=== PATIENT | male | born 1995 | race Two or more races ===

== ENCOUNTER 2017-02-11 21:51 | Emergency (ER) | payer OTHER ==
[2017-02-11 22:00] VITALS: BP 133/84
[2017-02-11 22:55] LABS: BILIRUBIN,URINE NEG (NEG); CLARITY,URINE CLEAR; COLOR,URINE YELLOW; GLUCOSE,URINE NEG (NEG)
[2017-02-11 22:56] LABS: BACTERIA,URINE 0 /HPF (0-FEW); NITRITE,URINE NEG (NEG); RBC,URINE OCC /HPF (0-2); SQUAMOUS EPITHELIAL CELL,UR OCC /LPF; UROBILINOGEN,URINE 0.2 mg/dL (0.2 mg/dL); WBC,URINE OCC /HPF (0-4)
--- NOTE | 2017-02-11 23:27 | PHYS DOC ---
General Chief Complaint: URINARY FREQUENCY Stated Complaint: FREQUENT URINATION Time Seen by MD: 22:00 Source: patient Exam Limitations: no limitations Problems: History of Present Illness Initial Comments Patient is a 21-year-old male who comes to the emergency department complaining of urinary frequency. Patient states that since this morning he's felt like he had to urinate but cannot produce much urine. He denies any dysuria hematuria odor, no lower abdominal pain and flank pain nausea or vomiting. No pain with bowel movements or ejaculation no penile discharge no testicular pain or history of STI. No fever chills sweats or myalgias patient is normally healthy and denies any chronic medical conditions or daily medications. Patient denies any trauma or high risk sexual behavior. ED vitals are normal. Timing/Duration: 24 hours Severity: moderate Modifying Factors: improves with other Associated Symptoms: other Allergies: Coded Allergies: No Known Drug Allergies (Unverified , 02/11/17) Past Medical History Medical History: no pertinent history Surgical History: no surgical history Social History Smoker: cigarettes Alcohol: none Drugs: none Review of Systems Constitutional: denies chills, denies diaphoresis, denies fever Respiratory: denies cough, denies shortness of breath Cardiovascular: denies chest pain, denies palpitations Gastrointestinal: see HPI Genitourinary: see HPI Musculoskeletal: denies back pain, denies joint swelling Psychiatric/Neurological: denies headache, denies numbness, denies paresthesia Physical Exam General Appearance: WD/WN, no apparent distress Ear, Nose, Throat: hearing grossly normal, normal ENT inspection Neck: full range of motion, supple Respiratory: normal breath sounds, no respiratory distress Cardiovascular: normal peripheral pulses, regular rate, rhythm Gastrointestinal: non tender, soft Back: no CVA tenderness, no vertebral tenderness Extremities: non-tender, normal inspection Neurologic/Psychiatric: alert, oriented x 3 Skin: normal color, warm/dry Orders, Labs, Meds Urinalysis is unremarkable Bladder scan reveals a 6 mL post void residual I discussed findings, patient has sensation of urinary frequency however there is no evidence of infection and scant post void residual. No further need for ED workup the patient was reassured. Patient will follow-up at [place] tomorrow for recheck and urology referral. He was advised to stop smoking. Departure Time of Disposition: 23:25 Disposition: HOME, SELF-CARE Diagnosis: urinary frequency Condition: STABLE Patient Instructions: Urinary Frequency Additional Instructions: As discussed no infection or evidence of urinary retention present tonight. No further indication for emergent workup. Follow-up tomorrow at [place] for recheck and urology referral. Return to ED with new or changing symptoms. DALY OLSEN DO Feb 11, 2017 23:27
== END 2017-02-11 23:40 | disposition home or self-care (01) ==
LOC: ER 21:51
DX: R35.0 Frequency of micturition (principal); F17.210 Nicotine dependence, cigarettes, uncomplicated
CPT/HCPCS: 81001; 99285-25